=== PATIENT | female | born 1990 | race Caucasian/White ===

== ENCOUNTER 2023-09-22 14:31 | Emergency (ER) | payer BC, OTHER, MEDICAID, SELFPAY ==
--- NOTE | ~2023-09-22 | XR_ITS ---
EXAM: XR shoulder RT min 2V DATE: 09/22/2023 15:03 HISTORY: right shoulder pain after a fall . COMPARISON: None available. FINDINGS: Normal mineralization. No fracture or dislocation. No lytic or blastic lesion. Joint space s are maintained. No erosion or periosteal change. Soft tissues within normal limits. IMPRESSION: Normal right shoulder radiograph findings. Reviewed, dictated and finalized at location [facility] [employer]
[2023-09-22 14:50] VITALS: BP 119/76; PULSE 84; RESP 18; TEMP 36.3; O2SAT 100
--- NOTE | 2023-09-22 14:51 | ED.GENADULT ---
HPI - General Adult General Chief complaint: Extremity Injury, Lower Stated complaint: fall,upper extermity injury Source: patient, RN notes reviewed and old records reviewed Mode of arrival: ambulatory Limitations: no limitations History of Present Illness HPI narrative: 32 [employer] with complaints right shoulder pain that started Friday after falling skiing. Patient denies any other injuries. Patient states this pain is worse with movement. MD complaint: Right shoulder pain Onset (ago): day(s) (2) Related Data Home Medications Medication Instructions Recorded Confirmed sertraline 50 mg tablet 150 mg PO DAILY 09/22/23 09/22/23 Allergies Allergy/AdvReac Type Severity Reaction Status Date / Time chlorhexidine Allergy Unknown Verified 09/22/23 14:53 [From ChloraPrep Clear] isopropyl alcohol Allergy Unknown Verified 09/22/23 14:53 [From ChloraPrep Clear] Review of Systems Constitutional: Constitutional: Reports no additional constitutional complaints, Denies body ache(s), Denies chills, Denies fatigue, Denies fever(s) and Denies headache(s) Eyes: Eyes: Reports no additional eye complaints and Denies blurry vision ENT: Reports system reviewed and no additional complaints, except as documented, Denies vertigo, Denies dizziness, Denies ear discharge, Denies otalgia, Denies facial pain, Denies headache(s), Denies nasal congestion, Denies nasal discharge, Denies sinus pain, Denies sinus pressure and Denies sore throat Cardiovascular: Cardiovascular: Reports no additional cardiovascular complaints, Denies chest pain, Denies chest pain at rest, Denies rapid heart rate and Denies dyspnea Respiratory: Respiratory: Reports no additional respiratory complaints, Denies chest congestion, Denies cough, Denies pain on inspiration, Denies pain with cough and Denies dyspnea Gastrointestinal: Gastrointestinal: Denies abdominal pain, Denies diarrhea, Denies nausea and Denies vomiting Musculoskeletal: Comments: right shoulder pain Integumentary/Breasts: Skin/Breast: Denies rash Neurologic: Reports system reviewed and no additional complaints, except as documented, Denies vertigo, Denies dizziness and Denies headache(s) Endocrine: Endocrine: Denies fatigue PMFSH Comments At the time of my signature, I reviewed and agree with the nursing past medical, surgical, social, and family history. There is no relevant family history pertinent to the patient complaint. Exam Const: General: cooperative, healthy appearing, no acute distress and well nourished Nutritional Appearance: well nourished Orientation/consciousness: patient oriented x3 Limitations: no limitations HENMT: Head: normal to inspection and normocephalic Ears: external ears normal, TM's normal bilaterally, mastoids normal and Abnormal EAC present Face/Nose/Sinus: normal facial exam Face and sinus: normal facial exam Mouth: Yes Normal oral and palatal mucosa present, Yes oropharynx normal and Yes moist mucous membranes Throat: tonsils normal, uvula midline and no uvular edema Eyes: General: appearance normal, both eyes and all related structures Sclera: sclerae normal Pupils: Equal, round and reactive pupils present Resp: Effort & Inspection: normal respiratory effort, able to speak in complete sentences, no audible wheezes, no cough, no respiratory distress and no retractions Cardio: Rate: regular rate Skin: General skin exam: normal color and no rashes or lesions noted Neuro: General: patient oriented x3 Cranial nerves: Yes Equal, round and reactive pupils present Extrem: Right upper extremity: normal capillary refill, shoulder/upper arm tenderness of the proximal humerus and abnormal ROM pain with active ROM and pain with passive ROM and elbow/forearm normal to inspection and normal ROM; no tenderness and no swelling; no edema and joint enlargement noted Psych: Appearance: grossly normal Mental Status: mental status grossly normal Speech a
== END 2023-09-22 15:20 | disposition home or self-care (01) ==
PROVIDERS: Emergency Provider Registered Nurse
DX: S40.011A Contusion of right shoulder, initial encounter (principal); W19.XXXA Unspecified fall, initial encounter
CPT/HCPCS: 73030; 99203; G0463